=== PATIENT | female | born 1945 | race Caucasian/White ===

== ENCOUNTER 2024-10-10 09:36 | Day surgery (SDC) | payer BC ==
[2024-10-09 15:10] VITALS: BMI 37.1
[2024-10-10 10:00] VITALS: RESP 18
[2024-10-10 12:03] VITALS: TEMP 97.4
[2024-10-10 13:10] VITALS: BP 128/78; PULSE 96
== END 2024-10-10 13:05 | disposition home or self-care (01) ==
LOC: FASU-ENDO 09:36
PROVIDERS: ATTEND Internal Medicine Gastroenterology
PROC: 0DB98ZX Excision of Duodenum, Via Natural or Artificial Opening Endoscopic, Diagnostic (ICD-10-PCS; 2024-10-10)
PROC: 0DB68ZX Excision of Stomach, Via Natural or Artificial Opening Endoscopic, Diagnostic (ICD-10-PCS; 2024-10-10)
PROC: 0DB58ZX Excision of Esophagus, Via Natural or Artificial Opening Endoscopic, Diagnostic (ICD-10-PCS; 2024-10-10)
PROC: 0DBL8ZX Excision of Transverse Colon, Via Natural or Artificial Opening Endoscopic, Diagnostic (ICD-10-PCS; principal; 2024-10-10 11:08)
DX: Z12.11 Encounter for screening for malignant neoplasm of colon (principal); K57.30 Diverticulosis of large intestine without perforation or abscess without bleeding; D50.9 Iron deficiency anemia, unspecified; K64.1 Second degree hemorrhoids; K44.9 Diaphragmatic hernia without obstruction or gangrene; K29.50 Unspecified chronic gastritis without bleeding; K63.5 Polyp of colon
CPT/HCPCS: 74019-TC-FY; 88305-TC; 88342-TC

== ENCOUNTER 2024-12-22 08:00 | Day surgery (SDC) | payer BC ==
[2024-12-21 15:01] VITALS: BMI 36.9
[2024-12-22 08:27] VITALS: RESP 16
[2024-12-22] MEDS ORDERED: LIDOCAINE VISCOUS 2% ORAL/TOP 15 ML UNIT-DOSE CUP ONE (09:11)
[2024-12-22] MEDS ORDERED: PROPOFOL 160 ML ONE (09:12)
[2024-12-22] MEDS ORDERED: LIDOCAINE HCL/PF 2% SDV 5ML VIAL ONE ×2 (09:12→09:13)
[2024-12-22 11:09] VITALS: TEMP 97.4
[2024-12-22 11:14] VITALS: BP 142/73; PULSE 84
== END 2024-12-22 10:45 | disposition home or self-care (01) ==
LOC: FASU-ENDO 08:00
PROVIDERS: ATTEND Internal Medicine Gastroenterology
PROC: 0DB68ZX Excision of Stomach, Via Natural or Artificial Opening Endoscopic, Diagnostic (ICD-10-PCS; 2024-12-22)
PROC: 0DB68ZX Excision of Stomach, Via Natural or Artificial Opening Endoscopic, Diagnostic (ICD-10-PCS; principal; 2024-12-22 09:18)
DX: K31.A15 Gastric intestinal metaplasia without dysplasia, involving multiple sites (principal); K29.50 Unspecified chronic gastritis without bleeding; B96.81 Helicobacter pylori [H. pylori] as the cause of diseases classified elsewhere; K25.9 Gastric ulcer, unspecified as acute or chronic, without hemorrhage or perforation; K31.7 Polyp of stomach and duodenum; K44.9 Diaphragmatic hernia without obstruction or gangrene; K22.89 Other specified disease of esophagus
CPT/HCPCS: 88305-TC; 88341-TC; 88342-TC